=== PATIENT | female | born 1990 | race Caucasian/White ===

== ENCOUNTER 2016-07-07 13:42 | Inpatient (IN) ==
[2016-07-07 14:44] LABS: BASO% 0.1 % (0.0-0.8); HEMATOCRIT 39.6 % (37.0-47.0); HEMOGLOBIN 13.4 g/dL (12.0-16.0); IMM GRAN# 0.07 X1000 (0.0-0.04); IMM GRAN% 0.3 % (0.0-0.5); LYMPH# 0.81 X1000 (1.2-3.4); LYMPH% 3.2 % (20.5-51.1); MANUAL DIFF NEEDED? NO; MCH 31.4 PG (27-31); MCHC 33.8 g/dL (33-37); MCV 92.7 FL (81-99); MONO# 0.59 X1000 (0.11-0.59); MONO% 2.3 % (1.7-9.3); MPV 10.1 FL (7.4-10.4); NEUT% 94.1 % (42.2-75.2); PLT 355 X1000 (130-400); RBC 4.27 XMIL (4.2-5.4)
[2016-07-07 15:05] LABS: AGAP 14; ALKALINE PHOSPHATASE 88 U/L (32-104); AMYLASE 22 U/L (20-200); BUN 15 mg/dL (8-22); CALCIUM 8.9 mg/dL (8.8-10.2); CHLORIDE 95 mmol/L (98-107); COSMO 267; GOT 16 U/L (10-30); GPT 19 U/L (10-36); LIPASE 11 U/L (13-60); POTASSIUM 3.2 mmol/L (3.5-5.1); SODIUM 133 mmol/L (136-145); TCO2 24 mmol/L (25-35); TOTAL BILIRUBIN 1.05 mg/dL (0.20-1.00); TOTAL PROTEIN 7.4 g/dL (6.3-8.3)
[2016-07-07 17:23] LABS: URINE MICRO REVIEW NEEDED? NO; URINE SOURCE CLEAN CATCH
[2016-07-07 17:28] LABS: BILIRUBIN URINE NEGATIVE (NEGATIVE); BLOOD URINE MODERATE (NEGATIVE); COLOR ORANGE; GLUCOSE URINE NEGATIVE (NEGATIVE); LEUKOCYTES URINE LARGE (NEGATIVE); NITRITE URINE NEGATIVE (NEGATIVE); PH URINE 5.5; PROTEIN URINE 50 mg/dL (NEGATIVE); SP GRAVITY URINE 1.027; TURBIDITY URINE TURBID (CLEAR); UROBILINOGEN URINE 2 mg/dL (NORMAL)
[2016-07-07 17:29] LABS: UR EPITHELIAL CELLS <10 /HPF (<10); URINE BACTERIA 1+ /HPF; URINE CULTURE NEEDED? YES; URINE RBC <10 /HPF (<10)
[2016-07-07 17:44] LABS: UR AMPHETAMINES QUAL PRESUMPTIVE POSITIVE (NONE DETECT); UR BARBITUATES QUAL NONE DETECTED (NONE DETECT); UR BENZODIAZEPIN QUAL NONE DETECTED (NONE DETECT); UR CANNABINOIDS QUAL PRESUMPTIVE POSITIVE (NONE DETECT); UR COCAINE QUAL NONE DETECTED (NONE DETECT); UR METHADONE QUAL NONE DETECTED (NONE DETECT); UR OPIATES QUAL NONE DETECTED (NONE DETECT); UR OXYCODONE QUAL NONE DETECTED (NONE DETECT); UR PCP QUAL NONE DETECTED (NONE DETECT)
[2016-07-07] MEDS ORDERED: NS 1,000 ML IV ONE (18:25)
[2016-07-07] MEDS ORDERED: MORPHINE IV ONE (18:26)
[2016-07-07] MEDS ORDERED: ZOFRAN IV ONE (18:26)
[2016-07-07] MEDS ORDERED: CIPRO 400 MG/D5W 400 MG/200 ML IVPB IV ONE (20:05)
[2016-07-07] MEDS ORDERED: DILAUDID IV ONE (20:05)
[2016-07-07] MEDS ORDERED: FLAGYL 500 MG/NS 500 MG/100 ML IVPB IV ONE (20:05)
--- NOTE | 2016-07-07 20:33 | PROVIDER DOCUMENTATION ---
This chart was entered by Bina Varghese Scribe, acting as scribe for Kosta Gamino PA. HPI-Abdominal Pain/GI Problem - General Chief Complaint: Abdominal Pain Stated Complaint: ABD PAIN,VOMITING Time Seen by Provider: 07/07/16 18:19 Source: patient Allergies/Adverse Reactions: Patient Allergies Allergy/AdvReac Type Severity Reaction Status Date / Time Penicillins Allergy SWELLING Verified 11/24/14 14:21 Home Medications: Home Medication List Medication Instructions Recorded Confirmed Last Taken Type NK [No Home Medications] 07/07/16 07/07/16 Unknown History - History of Present Illness-ABD Nature of Presenting Problems: 26 year old F presents to the ED with a cc of ABD pain, nausea, and vomiting. PT states that last vomit was this morning. Pt states that she has not been able to eat or drink anything and keep it down. Pt has only urinated x1 today. PT states that she tried this morning to have a bowel movement but was unable to. PT states that she had a small amount of diarrhea. Abdominal Pain Onset Location: reports: generalized abdomen Pain Radiation: reports: no radiation Quality of Pain: reports: aching Severity in ED: reports: moderate Onset/Duration: reports: last night Timing: reports: still present Activities at Onset: reports: none Associated Symptoms: reports: diarrhea, nausea, vomiting Bruising or Bleeding Gums?: No Similar Symptoms Previously?: No Recently seen or treated by another doctor?: No Review of Systems - Adult - REVIEW OF SYSTEMS - ADULT Constitutional: denies: chills, fever Eyes: reports: no symptoms reported Ears, Nose, Mouth & Throat: reports: no symptoms reported Cardiovascular: reports: no symptoms reported Respiratory: denies: cough, shortness of breath Gastrointestinal: reports: abdominal pain, diarrhea, nausea, vomiting Genitourinary: denies: dysuria, hematuria Musculoskeletal: reports: no symptoms reported Integumentary: reports: no symptoms reported Neurological: reports: no symptoms reported Psychiatric: reports: no symptoms reported Endocrine: reports: no symptoms reported Hematologic/Lymphatic: reports: no symptoms reported Allergic/Immunologic: reports: no symptoms reported All Other Systems: Reviewed and Negative Past History - Adult - PAST MEDICAL HISTORY-ADULT Review of Records: reports: Nursing Assessment Review, Medications Reviewed Major Childhood Illnesses: reports: denies history Cardiovascular: reports: denies history Respiratory: reports: denies history Gastrointestinal: reports: denies history Obstetrical/Gynecological: reports: denies history Genitourinary: reports: denies history Musculoskeletal: reports: denies history Neurological: reports: denies history Psychiatric: reports: anxiety Endocrine/Immune: reports: denies history Other Conditions: reports: denies history - PRIOR SURGERIES/PROCEDURES Surgical/Procedure History: reports: (x's 2) - PRIOR HOSPITALIZATIONS Prior Hospitalizations: reports: none - IMMUNIZATION STATUS Childhood Immunizations: UTD Flu Vaccine: See Nurse Assessment - FAMILY HISTORY Family History: reviewed, not pertinent - SOCIAL HISTORY Smoking: cigarettes Provider spent 3-5 mins advising pt. on dangers of tobacco.: Discussed manners to quit use, and f/u contacts for add'l counseling. Substance Use: marijuana Alcohol Use Frequency: never Physical Exam-General - PHYSICAL EXAM-ADULT Initial Vital Signs Reviewed: Yes - CONSTITUTIONAL General Appearance: alert, moderate distress - RESPIRATORY Respiratory: chest non-tender, lungs clear, normal breath sounds - CARDIOVASCULAR Cardiovascular: normal peripheral pulses, regular rate, rhythm, no edema - GASTROINTESTINAL (ABDOMEN) Abdominal Exam: tenderness (mild generalized with moderate suprapubic and RLQ) - SKIN Integumentary: normal color, normal turgor, warm/dry - PSYCHIATRIC Psych/Mental Status: normal mood/affect, normal thought content, normal thought process, oriented x 3 Progress - PLAN OF CARE/RESULTS Progress/Plan/Lab Results: Vital Signs - 8 hr 07/07/16 14:00 Temperature 99.1 F Pulse Rate 113 H Respiratory Rate 16 Blood Pressure 111/63 O2 Sat by Pulse Oximetry 99 Bedside Urine ED: Urine Bedside Start: 07/07/16 14:03 Freq: ORDERED Status: Inactive Activity Type Activity Date Activity User E-Sign Co-Sign Detail Recorded Client Recorded Date Recorded By Edit Status 07/07/16 17:05 [id number] Active=>Inactive [id number] 07/07/16 17:05 [id number] Laboratory Results - last 24 hr 07/07/16 07/07/16 07/07/16 13:43 13:43 17:00 WBC 25.16 H RBC 4.27 Hgb 13.4 Hct 39.6 MCV 92.7 MCH 31.4 H MCHC 33.8 RDW Std Deviation 13.4 Plt Count 355 MPV 10.1 Immature Gran % (Auto) 0.3 Neut % (Auto) 94.1 H Lymph % (Auto) 3.2 L Falls % (Auto) 2.3 Eos % (Auto) 0.0 Baso % (Auto) 0.1 Immature Gran # (Auto) 0.07 H Neut # (Auto) 23.66 H Lymph # (Auto) 0.81 L Falls # (Auto) 0.59 Eos # (Auto) 0.00 Baso # (Auto) 0.03 Sodium 133 L Potassium 3.2 L Chloride 95 L Carbon Dioxide 24 L Anion Gap 14 BUN 15 Creatinine 0.7 Estimated GFR/1.73 m2 > 60 BUN/Creatinine Ratio 21 Glucose 102 Calculated Osmolality 267 Calcium 8.9 Total Bilirubin 1.05 H AST 16 ALT 19 Alkaline Phosphatase 88 Total Protein 7.4 Albumin 4.0 Globulin 3.4 Albumin/Globulin Ratio 1.2 Amylase 22 Lipase 11 L Urine Source CLEAN CATCH Urine Color ORANGE Urine Turbidity TURBID Urine pH 5.5 Ur Specific [place] 1.027 Urine Protein 50 A Ur Glucose (Stick) NEGATIVE Ur Ketones (Stick) TRACE A Urine Blood MODERATE A Urine Nitrite NEGATIVE Urine Bilirubin NEGATIVE Urobilinogen Dipstick 2 A Urine Leukocytes LARGE A Urine WBC (Auto) 10-20 A Urine RBC (Auto) <10 U Epithel Cells (Auto) <10 Urine Bacteria (Auto) 1+ Urine Test Urine Opiates Screen Ur Oxycodone Screen Ur Methadone, Qual Ur Barbiturates Screen Ur Phencyclidine Scrn Ur Amphetamines Screen U Benzodiazepines Scrn Urine Cocaine Screen U Cannabinoids Screen 07/07/16 07/07/16 17:00 17:00 WBC RBC Hgb Hct MCV MCH MCHC RDW Std Deviation Plt Count MPV Immature Gran % (Auto) Neut % (Auto) Lymph % (Auto) Falls % (Auto) Eos % (Auto) Baso % (Auto) Immature Gran # (Auto) Neut # (Auto) Lymph # (Auto) Falls # (Auto) Eos # (Auto) Baso # (Auto) Sodium Potassium Chloride Carbon Dioxide Anion Gap BUN Creatinine Estimated GFR/1.73 m2 BUN/Creatinine Ratio Glucose Calculated Osmolality Calcium Total Bilirubin AST ALT Alkaline Phosphatase Total Protein Albumin Globulin Albumin/Globulin Ratio Amylase Lipase Urine Source Urine Color Urine Turbidity Urine pH Ur Specific [place] Urine Protein Ur Glucose (Stick) Ur Ketones (Stick) Urine Blood Urine Nitrite Urine Bilirubin Urobilinogen Dipstick Urine Leukocytes Urine WBC (Auto) Urine RBC (Auto) U Epithel Cells (Auto) Urine Bacteria (Auto) Urine Test NEGATIVE Urine Opiates Screen NONE DETECTED Ur Oxycodone Screen NONE DETECTED Ur Methadone, Qual NONE DETECTED Ur Barbiturates Screen NONE DETECTED Ur Phencyclidine Scrn NONE DETECTED Ur Amphetamines Screen PRESUMPTIVE POSITIVE A U Benzodiazepines Scrn NONE DETECTED Urine Cocaine Screen NONE DETECTED U Cannabinoids Screen PRESUMPTIVE POSITIVE A Orders Category Date Time Status ED: Urine Bedside ORDERED Care 07/07/16 14:03 Inactive Saline Loc DIRECTED Care 07/07/16 14:03 Active NPO Diet 07/07/16 14:03 Active AMYLASE [CHEM] Stat Lab 07/07/16 13:43 Completed CBC WITH ELECTRONIC DIFF [HEME] Stat Lab 07/07/16 13:43 Completed COMPREHENSIVE METABOLIC PANEL [CHEM] Stat Lab 07/07/16 13:43 Completed LIPASE [CHEM] Stat Lab 07/07/16 13:43 Completed TEST-URINE [PREG] Stat Lab 07/07/16 17:00 Completed URINALYSIS W/POSS RFLX CULT-1 [URINALYSIS] Stat Lab 07/07/16 17:00 Completed URINE CULTURE [RM] Routine Lab 07/07/16 17:49 Received URINE DRUG SCREEN Stat Lab 07/07/16 17:00 Completed Pt is still screaming in pain and vomiting. Will discuss c hospitalist. Result Diagrams: 07/07/16 13:43 07/07/16 13:43 - CT/MRI 1 CT Study: Abdomen, Pelvis CT Results: infectious enteritis - CONSULTS/PCP/HOSPITALIST Notification #1 *Consult/PCP/Hospitalist*: Dr. Awan Time Discussed: 20:31 Consult Disposition: Admit Departure - Departure Time of Disposition Decision: 20:31 DIAGNOSIS: Infectious enteritis Qualifiers: Enteritis organism: unspecified infectious agent Qualified Code(s): A09 - Infectious gastroenteritis and colitis, unspecified Nausea & vomiting Qualifiers: Vomiting type: cyclical vomiting Vomiting Intractability: unspecified Qualified Code(s): G43.A0 - Cyclical vomiting, not intractable Disposition: ADMITTED INPATIENT 09 Certified Medical Emergency: Emergent Condition: Stable Referrals and Follow-Ups: None,PCP [Primary Care Provider] - - Critical Care Note This patient required my direct & personal management of CC.: No Attestation - Physician/ CAROL Attestation Patient care was provided by Advanced Practice Provider:: Yes Advanced Practice Provider:: Kosta Gamino Advanced Practice Provider documentation review:: The Mid-level provider documentation, treatment plan and medical decision making was reviewed by the physician who agrees with all treatment and medical decision making by the MLP. This chart was documented by the indicated scribe, (Bina Varghese Scribe) and accurately reflects the services I performed and decisions made by Stevenson kwon Steven Wesley, PA, as attested by the provider's signature.
[2016-07-07] MEDS ORDERED: KLOR-CON PO ONE (21:26)
[2016-07-07] MEDS ORDERED: CIPRO 400 MG/D5W 400 MG/200 ML IVPB IV SCH (22:17)
[2016-07-07] MEDS: FLAGYL 500 MG/NS 500 MG/100 ML IVPB IV SCH (22:44)
[2016-07-07] MEDS: NS 1,000 ML IV SCH (22:44)
[2016-07-08] MEDS: FLAGYL 500 MG/NS 500 MG/100 ML IVPB IV SCH ×4 (04:56→22:20)
[2016-07-08] MEDS: DILAUDID IV PRN ×5 (05:45→18:13)
[2016-07-08 06:23] LABS: AGAP 11; BUN 8 mg/dL (8-22); CALCIUM 8.3 mg/dL (8.8-10.2); CHLORIDE 102 mmol/L (98-107); COSMO 269; POTASSIUM 3.5 mmol/L (3.5-5.1); SODIUM 136 mmol/L (136-145); TCO2 23 mmol/L (25-35)
[2016-07-08 06:26] LABS: BASO% 0.1 % (0.0-0.8); EOS# 0.03 X1000 (0.0-0.7); EOS% 0.1 % (0.0-10.0); HEMATOCRIT 32.6 % (37.0-47.0); IMM GRAN# 0.09 X1000 (0.0-0.04); IMM GRAN% 0.3 % (0.0-0.5); LYMPH# 1.75 X1000 (1.2-3.4); LYMPH% 6.3 % (20.5-51.1); MANUAL DIFF NEEDED? YES; MCH 31.4 PG (27-31); MCHC 33.7 g/dL (33-37); MCV 93.1 FL (81-99); MONO# 0.87 X1000 (0.11-0.59); MONO% 3.2 % (1.7-9.3); MPV 10.2 FL (7.4-10.4); PLT 287 X1000 (130-400)
[2016-07-08 07:24] LABS: BANDS 12 % (0-1); LYMPHS 6 % (21-51); MONO 2 % (1-9)
--- NOTE | 2016-07-08 07:42 | Diag Imaging Result Doc PS360 ---
EXAM: CT ABD/PELVIS W/ IV CONT ONLY HISTORY: severe suprapubic, RLQ pains, leukocytosis TECHNIQUE: CT of the abdomen with intravenous contrast and dose reduction (clarity.) COMMENT: Minimal atelectasis versus pneumonia is present in the posterior right lower lobe. There are no previous studies. The liver and spleen are within normal limits. There are no gallstones. The kidneys are without evidence of hydronephrosis or mass. The adrenal glands are within normal limits. The pancreas is unremarkable. There is some gas and stool in the colon. There are distended small bowel loops in the mid abdomen. There is fluid in the ascending colon. There is at least one periaortic node approaching one centimeter in diameter. CT of the pelvis with intravenous Contrast: There is no evidence of appendicitis. Some fluid and fecal debris are noted in the rectum. There are multiple ovarian follicles present bilaterally. There are slightly distended small bowel loops. The distal ileum is not distended. There is prominent enhancement of the surface of the uterus. Possibility of pelvic inflammatory disease or even endometriosis cannot be excluded. IMPRESSION: Apparent enteritis. Possibility of pelvic inflammatory disease or endometriosis should be considered. Electronically signed by Khanh Alberto 07/08/2016 7:39 AM
[2016-07-08] MEDS: SODIUM CHLORIDE 0.9% INJ SCH ×2 (07:49→20:29)
[2016-07-08] MEDS: PROTONIX IV SCH ×2 (07:49→20:29)
[2016-07-08] MEDS: CIPRO 400 MG/D5W 400 MG/200 ML IVPB IV SCH ×2 (07:49→20:30)
[2016-07-08] MEDS: NS 1,000 ML IV SCH ×3 (07:52→22:19)
--- NOTE | 2016-07-08 08:21 | HISTORY AND PHYSICAL ---
CHIEF COMPLAINT: Nausea, vomiting, diarrhea and abdominal pain x1 day. HISTORY OF PRESENTING ILLNESS: A 26-year-old female without any significant past medical history who presented to the emergency department with a 1-day history of having nausea, vomiting, diarrhea and abdominal cramping. She states the pain was worsening and the nausea was not resolving. Subsequently she came to the emergency department. In the ER she was evaluated. She was given antiemetics, however, she only had mild improvement. Due to her persistent abdominal cramping, nausea and vomiting, it was thought that we will place patient in observation for further evaluation and management. At the time of my examination she had denied any headache, fever, chills, chest pain, shortness of breath, hemoptysis or weight changes. She complained of abdominal cramping, nausea, and vomiting. PAST MEDICAL HISTORY: None. PAST SURGICAL HISTORY: None. ALLERGIES: Penicillin. CURRENT MEDICATIONS: None. SOCIAL HISTORY: Twelve pack year history of smoking. Denies any history of alcohol or illicit drug use. FAMILY HISTORY: No history of coronary disease. REVIEW OF SYSTEMS: Twelve point systems is as in HPI. Other systems negative. PHYSICAL EXAMINATION: GENERAL: Cooperative, friendly female. She is resting more comfortably now. VITAL SIGNS: Temperature 99.1 degrees, pulse 130, respirations 16, blood pressure 111/63. She is saturating 99% on room air. HEENT: Atraumatic, normocephalic. Extraocular movements intact. PERRLA. NECK: Supple. CHEST: Clear to auscultation. CARDIOVASCULAR: Regular rate and rhythm. ABDOMEN: Soft. Some mild tenderness. EXTREMITIES: No edema. NEUROLOGIC: She is awake, alert, oriented x3. GENITOURINARY: No bladder distention. SKIN: Warm. LABORATORIES AND STUDIES: WBC 25.16, hemoglobin 13.4, hematocrit 39.6, platelets 355,000. Sodium 133, potassium 3.2, chloride 95, CO2 24, BUN is 15, creatinine 0.7, glucose 102. UA saw some large leukocytes and +1 bacteria. UDS positive for cannabinoids and amphetamines. ASSESSMENT: A 26-year-old female without significant past medical history presents to the emergency department with a 1-day history of having nausea, vomiting, diarrhea and abdominal cramps. Her CT scanning revealed that she has some infectious enteritis. We will place the patient in observation for further evaluation and management. 1. Acute gastroenteritis. 2. Mild hypokalemia. 3. Illicit drug abuse. PLAN: 1. We will admit patient to medical floor with telemetry. 2. Continue with supportive treatment with IV fluids, antiemetics, pain control. 3. We will start patient on Flagyl. 4. We will replace her potassium. 5. We counseled patient on cessation of illicit drugs and smoking. 6. We will put patient on DVT prophylaxis with SCDs. 7. We will continue to follow and reassess. cc: Rudolph Awan MD
[2016-07-08] MEDS ORDERED: NICODERM PATCH TD SCH (11:45)
[2016-07-08] MEDS: NICODERM PATCH TD SCH (12:05)
[2016-07-08] MEDS: ZOFRAN IV PRN (13:58)
--- NOTE | 2016-07-08 14:15 | CONSULTATION ---
DATE OF CONSULTATION: 07/08/2016 REASON FOR CONSULTATION: Nausea, vomiting, abdominal pain, diarrhea. HISTORY OF PRESENT ILLNESS: This is a 26-year-old white female who reports onset of symptoms on Wednesday. She reported severe abdominal pain, cramping, and nausea with vomiting. She has had several episodes of diarrhea. She reports no sick contacts. She does not know of eating anything that could have made her sick. She denies blood in the stool or black stool. She does report some blood in her urine. She reports a low-grade fever. She reports some vaginal discharge and is asking for tests for STDs. PAST MEDICAL HISTORY: None significant. PAST SURGICAL HISTORY: Two sections. ALLERGY: Penicillin, causing hives. HOME MEDICATIONS: None listed. SOCIAL HISTORY: Positive for tobacco use, 1 pack daily. She denies alcohol use. Her toxicology was positive for cannabinoids and amphetamines. She states she does not usually smoke marijuana, but did recently, to see if it would help with her abdominal pain/nausea and vomiting. She is single. She has 2 children. She does not work. She lives with her mother, who is at the bedside. REVIEW OF SYSTEMS: Per HPI. PHYSICAL EXAMINATION: Vital Signs: Temperature 98.4 degrees, pulse 97, respirations 16, blood pressure 100/57. General: Generally, patient is awake and alert, in no acute distress. HEENT: Normocephalic, atraumatic. Pupils equal, round, reactive to light. Sclerae nonicteric. Respiratory: Lung sounds clear bilaterally. Cardiovascular: Regular rate and rhythm. Abdomen: Soft. Tenderness with palpation. Neurological: Cranial nerves 2-12 grossly intact. Patient is awake, alert, oriented to person, place, and time. Extremities: No lower extremity edema noted. DIAGNOSTIC RESULTS: Laboratory: Hematology: White count 27.61 hemoglobin 11.0 hematocrit 32.6, MCV 93.1, platelets 287,000. Chemistry: Sodium 136, potassium 3.5, chloride 102, CO2 of 23, BUN 8, creatinine 0.5, glucose 84, total bilirubin 1.05, AST 16, ALT 19, alkaline phosphatase 88, amylase 22, lipase 11. Urinalysis showed moderate amount of blood in the urine, large amount of leukocytes, 10-20 WBCs. Urine nitrite was negative. Bacteria 1+. test was negative. Toxicology: Positive for amphetamines and cannabinoids. IMAGING: Abdominal/pelvic CT scan showed apparent enteritis with the possibility of pelvic inflammatory disease or endometriosis. ASSESSMENT: 1. Abdominal pain. 2. Nausea and vomiting. 3. Mild diarrhea. 4. Leukocytosis. PLAN: Continue supportive care. We will order stool studies. Continue antibiotics and symptomatic treatment. Most likely, infectious gastroenteritis. Further plans will be made according to her progress. Thank you for this consultation. I have discussed this case with Dr. Aguilar. Dictated by LOLY Vasquez for Sanju Aguilar MD cc: LOLY Mckay MD [facility]
--- NOTE | 2016-07-08 14:36 | PROGRESS NOTE ---
DATE: 07/08/2016 SUBJECTIVE: The patient is resting comfortably. She just received pain medications and is a little groggy. OBJECTIVE: Vital Signs: Temperature 98.4 degrees, blood pressure 100/57, heart rate 97, respirations 16, O2 saturations 97% on room air. General: This is a young female, lying in bed, in no acute distress. Head: Normocephalic atraumatic. Heart: S1, S2. Normal. Tachycardic. Lungs: Clear to auscultation bilaterally. Abdomen: Positive bowel sounds. Soft, generalized tenderness. Extremities: No edema. No cyanosis. No calf tenderness. Neurologic: The patient is alert and oriented x3. LABS: White blood cell count 27, hemoglobin 11, hematocrit 32, platelets 287,000. Sodium 136, potassium 3.5, chloride 102, CO2 23, BUN 8, creatinine 0.5, glucose 84. ASSESSMENT AND PLAN: 1. Enteritis. Continue on IV antibiotic therapy plus fluids. GI has been consulted for further recommendations. 2. Leukocytosis. Will continue to treat the underlying infection. We will also obtain a CT of the chest to rule out the possibility of pneumonia. Continue on IV antibiotic therapy. 3. Polysubstance abuse. Aware. 4. Deep vein thrombosis prophylaxis. Will start the patient on Lovenox. cc: Tata Marquez MD
[2016-07-08] MEDS: LOVENOX SUBQ SCH (14:43)
--- NOTE | 2016-07-08 15:05 | Diag Imaging Result Doc PS360 ---
EXAM: CT THORAX W/O CONTRAST HISTORY: pneumonia TECHNIQUE: CT of the chest without contrast with root reduced dose (clarity.) COMMENT: There are no previous thoracic CT examinations. There are coarse opacities in the posterior portion of both lower lobes. There is a tiny left pleural effusion. There is no evidence of significant adenopathy. No acute bony abnormalities are present. IMPRESSION: Bibasilar atelectasis versus pneumonia. Electronically signed by Khanh Alberto 07/08/2016 3:02 PM
[2016-07-08] MEDS: BENTYL PO SCH (15:10)
[2016-07-09] MEDS: DILAUDID IV PRN ×7 (00:29→22:12)
[2016-07-09] MEDS: ZOFRAN IV PRN ×6 (00:30→23:10)
[2016-07-09] MEDS ORDERED: VANCOMYCIN IV PER PHARMACY MISC SCH (03:15)
[2016-07-09] MEDS ORDERED: VANCOMYCIN 1,350 MG in NS 250 ML IV ONE (04:00)
[2016-07-09] MEDS: FLAGYL 500 MG/NS 500 MG/100 ML IVPB IV SCH (04:02)
[2016-07-09 05:36] LABS: MANUAL DIFF NEEDED? NO
[2016-07-09 05:41] LABS: BASO% 0.1 % (0.0-0.8); EOS# 0.06 X1000 (0.0-0.7); EOS% 0.4 % (0.0-10.0); HEMOGLOBIN 10.7 g/dL (12.0-16.0); IMM GRAN# 0.06 X1000 (0.0-0.04); IMM GRAN% 0.4 % (0.0-0.5); LYMPH# 1.62 X1000 (1.2-3.4); LYMPH% 11.5 % (20.5-51.1); MCH 31.3 PG (27-31); MCHC 33.4 g/dL (33-37); MCV 93.6 FL (81-99); MONO# 0.83 X1000 (0.11-0.59); MONO% 5.9 % (1.7-9.3); MPV 10.1 FL (7.4-10.4); NEUT% 81.7 % (42.2-75.2); PLT 270 X1000 (130-400); RBC 3.42 XMIL (4.2-5.4)
[2016-07-09] MEDS: BENTYL PO SCH ×4 (05:56→16:05)
[2016-07-09 06:12] LABS: AGAP 13; BUN 3 mg/dL (8-22); CALCIUM 8.1 mg/dL (8.8-10.2); CHLORIDE 101 mmol/L (98-107); COSMO 267; POTASSIUM 3.4 mmol/L (3.5-5.1); SODIUM 136 mmol/L (136-145); TCO2 22 mmol/L (25-35)
[2016-07-09] MEDS: PROTONIX IV SCH ×3 (06:26→22:12)
--- NOTE | 2016-07-09 08:22 | CONSULTATION ---
DATE OF CONSULTATION: 07/09/2016 CONCLUSION: I think the patient has pelvic inflammatory disease which would account for her lower abdominal pain. She does have some diarrhea but she told me it was only minimal. On CT scan, it is said to show enteritis. However, the radiologist did mention that pelvic inflammatory disease also is a possibility. The patient has 1 of 2 blood cultures positive for gram- positive coccus. This could be a pathogen or it could be a contaminant such as a coagulase- negative staphylococcus being grown from the culture. The patient is very allergic to penicillin manifested by hives. The patient does have unprotected sex with multiple partners. In addition, she has a white coating to her tongue, suggestive of oral candidiasis. Because of this, I am concerned that she could have HIV infection. She did mention that a few months ago, her HIV test was done and it was negative. However, she is not certain as to exactly how long ago that was. On CT scan of the chest, it did show bibasilar atelectasis or pneumonia. RECOMMENDATIONS: I agree with using vancomycin to treat the gram-positive coccus growing from her blood and possible pneumonia pending results of the culture. The patient is very allergic to penicillin as mentioned above. Therefore, a regimen to treat possible pelvic inflammatory disease would be Levaquin and azithromycin. The patient already is on ciprofloxacin. I have discontinued ciprofloxacin and instead have ordered Levaquin to be given 500 mg once daily. Patient is having some nausea and vomiting. Therefore, azithromycin which should be included in the regimen cannot be given by mouth. I plan to give her IV azithromycin. The oral dose of azithromycin when treating PID is 2 g and I have never seen an azithromycin dose of 2 g being given intravenously. Therefore, I will give the azithromycin in a dose of 500 mg daily intravenously. Because of what I consider the possibility of having HIV infection, I have ordered an antibody to HIV to be drawn. In addition, I have also ordered a urinary test even though the patient tells me that approximately 5 days ago, she had a menstrual period which was at its usual time. DISCUSSION: The patient has a 3-day history of lower abdominal pain, nausea, and vomiting. She said she had some loose stools but it was only minimal. She also complain of slight dysuria and a vaginal discharge with a green-colored, white discharge. She also had fever. Laboratory studies thus far show a CBC with a white count initially of 27,600, and today it is down to 14,090. Hemoglobin is 10.9 and platelet count 270,000. Creatinine is 0.5. GFR is greater than 60. One of two blood cultures is growing gram positive cocci. Urine culture is negative. CT scan of the chest shows bibasilar atelectasis versus pneumonia. CT scan of the abdomen pelvis shows enteritis with a question of it instead showing PID. PAST MEDICAL HISTORY/REVIEW OF SYSTEMS: Eyes and Ears: She denies difficulty hearing or seeing. Neck: No stiffness. Respiratory: No cough or shortness of breath. Cardiovascular: No chest pain or palpitations. GI: As mentioned above, the patient did have nausea and vomiting, and only a very small amount of diarrhea. She is having lower abdominal pain. Genitourinary: The patient had slight dysuria as mentioned above. She is not having any flank pain. Endocrine: She does not have diabetes or thyroid disease. Hematologic: No history of anemia or bleeding tendency. Bones, Joints, Muscles: No joint swelling or myalgias. Integument: No rashes , although the patient does have tattoos. 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 She delivered both her children by . Her last menstrual period was 5 days ago. She is not on any control device. PREVIOUS HOSPITALIZATIONS AND OPERATIONS: She has had 2 C sections. MEDICAL DISEASES: Positive for hypertension. Negative for diabetes. INFECTIOUS DISEASE HISTORY: Positive for UTI. Negative for pneumonia. FAMILY HISTORY: Positive for hypertension, myocardial infarction, and cancer. SOCIAL HISTORY[place] She is single. She lives with her mother. She has an allergy to penicillin manifested by hives. She smoke cigarettes but she denies drinking alcoholic beverages or using illicit drugs. HOME MEDICATIONS: The patient's home medications show the following: She is on no home medications. ALLERGIES: The patient is allergic to penicillin manifested by hives. PHYSICAL EXAMINATION: Vital Signs: Temperature is 98.6 degrees, pulse 90, respirations 16, blood pressure 101/58. Patient's weight is listed as 101 pounds. General: This is an ill-appearing, young female. She is in no acute distress. Head, Eyes, Ears, Nose, and Throat : She has a white coating to her tongue. She can hear my spoken words. She can see near objects. Neck: No meningismus. Thorax: No increased AP diameter of the chest. Lungs: Clear to auscultation. Cardiovascular: Heart rate is regular. Abdomen: Soft but tender in the lower part of the abdomen. I did hear bowel sounds. Neurologic: Patient is slightly lethargic. She has had medication for pain. She can move her extremities. There is no tremor. Her memory as regarding her medical history seems to be intact. Integument: Patient has tattoos. I did not see any rashes. Thank you for the consult. cc: David Paredes MD MTDD
[2016-07-09] MEDS: LEVAQUIN 500 MG/D5W 500 MG/100 ML IVPB IV SCH (08:25)
[2016-07-09] MEDS: MYCOSTATIN SUSP PO SCH ×4 (08:26→22:14)
[2016-07-09] MEDS: SODIUM CHLORIDE 0.9% INJ SCH ×2 (08:27→22:12)
[2016-07-09] MEDS: NICODERM PATCH TD SCH (08:27)
[2016-07-09] MEDS: PYRIDIUM PO SCH ×3 (10:20→22:11)
[2016-07-09] MEDS: ZITHROMAX 500 MG/NS 500 MG/250 ML IVPB IV SCH (10:20)
--- NOTE | 2016-07-09 13:03 | PROGRESS NOTE ---
DATE: 07/09/2016 SUBJECTIVE: The patient is still complaining of lower abdominal pain. OBJECTIVE: Vital signs: Temperature 98 degrees, blood pressure 110/61, heart rate 107, respirations 16, O2 saturations 98% on room air. General: This is a young female, lying in bed, in no acute distress. Head: Normocephalic atraumatic. Heart: S1, S2. Normal. Tachycardic. Lungs: Clear to auscultation bilaterally. No crackles. No rales. Abdomen: Positive bowel sounds. Soft, nontender, nondistended. Extremities: No edema. No cyanosis. No calf tenderness. Neurologic: The patient is alert and oriented x3. LABS: White blood cell count 14, hemoglobin 10, hematocrit 32, platelets 270,000. Sodium 136, potassium 3.4, chloride 104, CO2 22, BUN 3, creatinine 0.5, glucose 80. ASSESSMENT AND PLAN: 1. Pelvic inflammatory disease. Continue on the IV antibiotic regimen as directed by Dr. Paredes. 2. Pneumonia. Continue on IV antibiotic therapy plus incentive spirometry and bronchodilator therapy. 3. Enteritis. The patient appears to be tolerating her diet. She does complain of some mild diarrhea however. Will continue to monitor for improvement. GI is following. 4. Tobacco dependence. Continue on the NicoDerm patch. 5. Urinary tract infection. The urine culture is growing out mixed caroline. We will add Pyridium since the patient is complaining of burning on urination. Continue with antibiotic therapy. 6. Deep vein thrombosis prophylaxis. Continue on Lovenox. cc: Tata Marquez MD
[2016-07-09] MEDS: NS 1,000 ML IV SCH (15:10)
[2016-07-09] MEDS: LOVENOX SUBQ SCH (15:47)
[2016-07-09] MEDS: VANCOMYCIN 1 GM/NS 1 GM/250 ML IVPB IV SCH (16:36)
[2016-07-10] MEDS: DILAUDID IV PRN ×7 (02:31→22:56)
[2016-07-10] MEDS: VANCOMYCIN 1 GM/NS 1 GM/250 ML IVPB IV SCH (04:02)
[2016-07-10] MEDS: NS 1,000 ML IV SCH ×2 (04:03→06:45)
[2016-07-10] MEDS: ZOFRAN IV PRN ×5 (04:03→21:59)
[2016-07-10] MEDS: BENTYL PO SCH ×3 (06:44→15:25)
[2016-07-10 06:46] LABS: MANUAL DIFF NEEDED? NO
[2016-07-10 06:52] LABS: BASO% 0.2 % (0.0-0.8); EOS# 0.17 X1000 (0.0-0.7); EOS% 1.9 % (0.0-10.0); HEMATOCRIT 30.3 % (37.0-47.0); HEMOGLOBIN 10.2 g/dL (12.0-16.0); IMM GRAN# 0.02 X1000 (0.0-0.04); IMM GRAN% 0.2 % (0.0-0.5); LYMPH# 1.62 X1000 (1.2-3.4); LYMPH% 18.1 % (20.5-51.1); MCH 31.2 PG (27-31); MCHC 33.7 g/dL (33-37); MCV 92.7 FL (81-99); MONO# 0.73 X1000 (0.11-0.59); MONO% 8.2 % (1.7-9.3); MPV 10.1 FL (7.4-10.4); NEUT% 71.4 % (42.2-75.2); PLT 262 X1000 (130-400); RBC 3.27 XMIL (4.2-5.4)
[2016-07-10 07:29] LABS: AGAP 12; BUN 1 mg/dL (8-22); CALCIUM 8.2 mg/dL (8.8-10.2); CHLORIDE 97 mmol/L (98-107); COSMO 267; POTASSIUM 2.7 mmol/L (3.5-5.1); SODIUM 136 mmol/L (136-145); TCO2 27 mmol/L (25-35)
[2016-07-10] MEDS ORDERED: KLOR-CON PO ONE (07:59)
--- NOTE | 2016-07-10 09:05 | PROGRESS NOTE ---
DATE: 07/10/2016 PRESENT ILLNESS: I think the patient has pelvic inflammatory disease. She also has 1/2 blood cultures positive for a coagulase-negative Staph. I believe this is a contaminant and does not require treatment. MEDICATIONS: The patient currently is receiving a combination of Levaquin and azithromycin. PHYSICAL EXAMINATION: Vital Signs: Temperature is 97.6 degrees, pulse 67, respirations 18, blood pressure 153/58. General: This is a somewhat ill-appearing, young female. She is in no acute distress. In fact, she told me that her abdomen is getting slightly less painful, and she is not having diarrhea. Her nausea is not as bad, and she would like to increase her diet to a soft diet and stop just the clear liquid diet. Ears/nose/throat: The patient's tongue looks less white to me than it did yesterday. Lungs: Clear to auscultation. Cardiovascular: Regular heart rate. Abdomen: Soft, but it is tender, mostly in the lower part of the abdomen in the midline. LAB AND X-RAY: As mentioned above, one of two blood cultures is growing a coagulase-negative Staph which I think is a contaminant. Urine cultures mixed test is negative. CBC shows a white count of 8940, hemoglobin 10.2, and platelet count 262,000. Patient's creatinine is 0.4. GFR is greater than 60. ASSESSMENT AND PLAN: As mentioned above, I think the patient has pelvic inflammatory disease. She is improving. Her blood culture growing a coagulase-negative Staphylococcus is a contaminant and should not be treated. The patient's tongue is not as white or sore, so it would seem that the Mycostatin is helping that. What I do not have back yet and would be very important is the antibody test to human immunodeficiency virus. Our plan now is to continue treatment with Levaquin and azithromycin, and discontinue vancomycin. The patient's comorbidities are that she has had sexual relations and does not practice any protected sex. The patient' s human immunodeficiency virus status is still pending. I think it is possible the patient does have a human immunodeficiency virus infection. She also has oral candidiasis. I plan to continue Levaquin for a total of 14 days and azithromycin for a total of 5 days. cc: MD CHRISTIN Jon
[2016-07-10] MEDS: MYCOSTATIN SUSP PO SCH ×5 (09:40→20:11)
[2016-07-10] MEDS: PROTONIX IV SCH ×2 (09:41→20:11)
[2016-07-10] MEDS: SODIUM CHLORIDE 0.9% INJ SCH ×2 (09:41→20:11)
[2016-07-10] MEDS: ZITHROMAX 500 MG/NS 500 MG/250 ML IVPB IV SCH (09:41)
[2016-07-10] MEDS: NICODERM PATCH TD SCH (09:41)
[2016-07-10] MEDS: PYRIDIUM PO SCH ×3 (09:41→17:42)
[2016-07-10 10:51] LABS: HIV ANTIBODY SCREEN SEE COMMENTS
--- NOTE | 2016-07-10 10:59 | PROGRESS NOTE ---
DATE: 07/10/2016 SUBJECTIVE: Patient states she is feeling a little better. She is still having some nausea and abdominal pain. OBJECTIVE: Vital signs: Temperature 97.6 degrees, pulse 67, respirations 18, blood pressure 153/58. LABORATORY: Hematology: White count 8.94, hemoglobin 10.2, hematocrit 30.3, MCV 92.7, platelet 262,000. Chemistry sodium 136, potassium 2.7, chloride 97, CO2 27, BUN 1, creatinine 0.4, glucose 80. ASSESSMENT: 1. Nausea and vomiting improved. 2. A CT showing possible enteritis or possible pelvic inflammatory disease. She has been followed by Dr. Paredes. There is concern about possible HIV. They are waiting on the results of the laboratory findings. She is being treated for oral linda. GI will be available as needed. Continue supportive care. Dictated by LOLY Vasquez for Sanju Aguilar MD cc: LOLY Mckay MD
--- NOTE | 2016-07-10 11:41 | Diag Imaging Result Doc PS360 ---
EXAM: ABDOMEN FLAT/UPRIGHT HISTORY: abdominal pain TECHNIQUE: Flat and upright, two views COMMENT: There is apparent hyperdense material present in the stomach the etiology of which is unclear. This was not present on the CT scan of 07/07/2016. There is some apparent atelectasis in the right base. There is colonic and small bowel gas throughout the abdomen with some stool in the colon including the rectum. No evidence organomegaly or mass is present. IMPRESSION: Possibility of ileus cannot be excluded. Electronically signed by Khanh Alberto 07/10/2016 11:39 AM
[2016-07-10] MEDS ORDERED: DULCOLAX PR ONE (12:18)
[2016-07-10] MEDS: MIRALAX PO SCH ×2 (12:31→20:11)
[2016-07-10] MEDS: COLACE PO SCH ×2 (12:31→20:11)
[2016-07-10] MEDS: LEVAQUIN 500 MG/D5W 500 MG/100 ML IVPB IV SCH (12:32)
--- NOTE | 2016-07-10 12:48 | PROGRESS NOTE ---
DATE: 07/10/2016 SUBJECTIVE: The patient is resting comfortably in bed. She does complain of constipation and abdominal bloating. OBJECTIVE: Vital Signs: Temperature 97.6 degrees, blood pressure 111/61, heart rate 105, respirations 18, O2 saturation is 96% on room air. General: This is a young female, lying in bed, in no acute distress. Head: Normocephalic, atraumatic. Heart: S1, S2. Normal. Regular rate and rhythm. Lungs: Clear to auscultation bilaterally. Abdomen: Positive bowel sounds. Soft, nontender, nondistended. Extremities: No edema. No cyanosis. No calf tenderness. Neurologic: The patient is alert and oriented x3.. LABS: White blood cell count 8.9, hemoglobin 10, hematocrit 30, platelets 262,000. Sodium 136, potassium 2.7, chloride 97, CO2 27, BUN 1, creatinine 0.4, glucose 80. ASSESSMENT AND PLAN: 1. Pelvic inflammatory disease. Continue on the current antibiotic regimen as directed by Dr. Paredes. 2. Possible ileus with constipation. We will start the patient on MiraLAX plus Dulcolax 10. 3. Leukocytosis. Resolved. 4. Enteritis. Continue on the current antibiotic therapy. 5. Hypokalemia. Will replace the patient's potassium. 6. The patient has been encouraged to ambulate in the hallway as much as possible. cc: Tata Marquez MD
[2016-07-10] MEDS: LOVENOX SUBQ SCH ×2 (15:26→15:27)
[2016-07-11] MEDS: MYCOSTATIN SUSP PO SCH ×5 (00:16→22:24)
[2016-07-11] MEDS: ZOFRAN IV PRN ×5 (03:10→22:23)
[2016-07-11] MEDS: DILAUDID IV PRN ×3 (03:11→15:40)
[2016-07-11 05:56] LABS: MANUAL DIFF NEEDED? NO
[2016-07-11 06:35] LABS: AGAP 13; BUN 4 mg/dL (8-22); CALCIUM 8.6 mg/dL (8.8-10.2); CHLORIDE 99 mmol/L (98-107); COSMO 272; POTASSIUM 3.7 mmol/L (3.5-5.1); SODIUM 138 mmol/L (136-145); TCO2 26 mmol/L (25-35)
[2016-07-11 06:47] LABS: BASO% 0.4 % (0.0-0.8); EOS# 0.18 X1000 (0.0-0.7); EOS% 2.6 % (0.0-10.0); HEMATOCRIT 33.6 % (37.0-47.0); HEMOGLOBIN 11.4 g/dL (12.0-16.0); IMM GRAN# 0.03 X1000 (0.0-0.04); IMM GRAN% 0.4 % (0.0-0.5); LYMPH# 2.01 X1000 (1.2-3.4); LYMPH% 29.4 % (20.5-51.1); MCH 31.2 PG (27-31); MCHC 33.9 g/dL (33-37); MCV 92.1 FL (81-99); MONO# 0.62 X1000 (0.11-0.59); MONO% 9.1 % (1.7-9.3); MPV 9.8 FL (7.4-10.4); NEUT% 58.1 % (42.2-75.2); PLT 361 X1000 (130-400); RBC 3.65 XMIL (4.2-5.4)
[2016-07-11] MEDS: BENTYL PO SCH ×3 (07:30→18:04)
[2016-07-11] MEDS ORDERED: LACTULOSE PO SCH (09:00)
[2016-07-11] MEDS: ZITHROMAX 500 MG/NS 500 MG/250 ML IVPB IV SCH ×2 (09:36→15:48)
[2016-07-11] MEDS: NICODERM PATCH TD SCH (09:55)
[2016-07-11] MEDS: COLACE PO SCH ×2 (09:58→22:23)
[2016-07-11] MEDS: PYRIDIUM PO SCH ×3 (09:58→18:04)
[2016-07-11] MEDS: MIRALAX PO SCH ×2 (09:59→22:24)
[2016-07-11] MEDS: PROTONIX IV SCH ×2 (10:09→22:24)
[2016-07-11] MEDS: CITRATE OF MAGNESIA PO ONE ×2 (10:09→15:50)
[2016-07-11] MEDS: SODIUM CHLORIDE 0.9% INJ SCH (10:09)
--- NOTE | 2016-07-11 11:27 | PROGRESS NOTE ---
DATE: 07/11/2016 SUBJECTIVE: The patient complains abdominal bloating and states that she still has not had a bowel movement. OBJECTIVE: Vital Signs: Temperature 98 degrees, blood pressure 122/78, heart rate 81, respirations 16, O2 saturations 96% on room air. General: This is a young female, lying in bed, in no acute distress. Head: Normocephalic. Atraumatic. Heart: S1, S2. Normal. Regular rate and rhythm. Lungs: Clear to auscultation bilaterally. Abdomen: Positive bowel sounds. Soft, nontender, nondistended. Extremities: No edema. No cyanosis. No calf tenderness. Neurologic: The patient is alert and oriented x3. LABORATORY DATA: White blood cell count 6.8, hemoglobin 11, hematocrit 33, platelets 361,000. Sodium 138, potassium 3.7, chloride 99, CO2 26, BUN 4, creatinine 0.4, glucose 82, calcium 8.6. ASSESSMENT AND PLAN: 1. Pelvic inflammatory disease. Continue on the current IV antibiotic regimen as directed by Dr. Paredes. 2. Constipation. We will give the patient a dose of magnesium citrate and lactulose. Continue on scheduled laxatives. 3. Enteritis. Continue on the current antibiotic regimen. 4. Deep vein thrombosis prophylaxis. Continue on Lovenox. cc: Tata Marquez MD
[2016-07-11] MEDS: LOVENOX SUBQ SCH (15:39)
[2016-07-11] MEDS ORDERED: FLEET ENEMA PR ONE (17:40)
[2016-07-11] MEDS: NORCO-5 PO PRN ×2 (18:04→22:22)
[2016-07-11] MEDS: LEVAQUIN 500 MG/D5W 500 MG/100 ML IVPB IV SCH (22:22)
[2016-07-11 23:10] VITALS: BP 102/74
--- NOTE | 2016-07-19 19:02 | DISCHARGE SUMMARY ---
ADMISSION DATE: 07/07/2016 DISCHARGE DATE: 07/12/2016 FINAL DISCHARGE DIAGNOSES: 1. Pelvic inflammatory disease. 2. Ileus. 3. Enteritis. 4. Constipation. 5. Leukocytosis. CONSULTATIONS REQUESTED DURING THIS HOSPITAL STAY: 1. Infectious Disease consultation with Dr. Eliane Paredes. 2. GI consultation with Dr. Aguilar. HOSPITAL COURSE: Ms. Newman is a 26-year-old female who presented to the ER with chief complaint of abdominal pain and fever. On admission patient had a CT of the abdomen and pelvis done that revealed enteritis. In light of this finding GI was consulted for further recommendations. Dr. Paredes was also consulted due to the elevated white count. After assessment it was thought that the patient's infection was secondary to pelvic inflammatory disease and the patient's antibiotics were changed. The patient did have 1 blood culture that grew out initial blood cultures that grew out coagulase-negative staph. This was thought to be a contaminant since the other bottle remained negative. An x-ray was done a few days later that revealed an ileus. The patient was started on laxatives. It was recommended by Dr. Paredes the patient continue on IV antibiotic therapy. On 07/11/2016 the patient decided to leave the hospital against medical advice. The patient was informed that she was a risk of severe disability and even if she leaves before treatment is complete. The patient stated that she was willing to take the risk and left the hospital signed AMA cc: Tata Marquez MD
== END 2016-07-12 01:00 | disposition left against medical advice (07) ==
LOC: 4N 13:42 → ED 13:42 → OBSVTOIN 21:54 → SUATTDRO 21:54
PROVIDERS: ATTEND Internal Medicine